=== PATIENT | female | born 1970 | race Caucasian/White ===

== ENCOUNTER 2023-10-11 06:02 | Emergency (ER) | payer BC ==
[~2023-10-11] VITALS: Ht 157.5 cm; Wt 68.4 kg
[2023-10-11] MEDS: diazePAM 5MG TABLET PO ONE (07:13)
[2023-10-11] MEDS: KETOROLAC 30 MG/ML 1ML VIAL IM ONE (07:14)
[2023-10-11] MEDS: ACETAMINOPHEN 500 MG TAB PO ONE (07:14)
[2023-10-11] MEDS: LIDOCAINE 5% (LIDODERM) PATCH TD ONE (07:14)
[2023-10-11 08:23] VITALS: BP 155/89; TEMP 97.4; O2SAT 99
[2023-10-11] MEDS ORDERED: METH-1164 PO (08:37)
[2023-10-11] MEDS ORDERED: NAPR-837 PO (08:37)
[2023-10-11] MEDS ORDERED: MEDR4TAB PO (08:37)
== END 2023-10-11 08:46 | disposition home or self-care (01) ==
LOC: M ED 06:02
DX: M54.31 Sciatica, right side (principal); M54.50 Low back pain, unspecified; I10 Essential (primary) hypertension; Z79.899 Other long term (current) drug therapy
CPT/HCPCS: 96374; 96375; 99283; J1100; J1885